=== PATIENT | male | born 1965 | race American Indian/Alaskan Native ===

== ENCOUNTER 2022-05-30 17:08 | Emergency (ER) | payer SELFPAY ==
[2022-05-30] MEDS ORDERED: SODIUM CHLORIDE 0.9% 1000 ML 1,000 ML IV ONE (17:35)
[2022-05-30 18:46] LABS: Basophils # (Auto) 0.1 K/mm3 (0.0-0.1); Basophils % (Auto) 1.8 % (0.0-1.8); Eosinophils % (Auto) 0.6 % (0.0-4.3); Hematocrit 39.6 % (35.5-45.6); Hemoglobin 12.4 gm/dl (11.8-15.2); Lymphocytes # (Auto) 0.7 K/mm3 (1.2-5.4); Lymphocytes % (Auto) 8.8 % (13.4-35.0); Mean Corpuscular HGB Conc 31 % (32-34); Mean Corpuscular Volume 75 fl (84-94); Monocytes # (Auto) 0.3 K/mm3 (0.0-0.8); Monocytes % (Auto) 3.4 % (0.0-7.3); Platelet Count 173 K/mm3 (140-440); Red Blood Count 5.26 M/mm3 (3.65-5.03); Red Cell Distribution Width 16.7 % (13.2-15.2)
[2022-05-30 19:10] LABS: Alanine Aminotransferase 15 units/L (7-56); Albumin 4.4 g/dL (3.9-5); BUN/Creatinine Ratio 9; Blood Urea Nitrogen 18 mg/dL (9-20); Calcium 9.4 mg/dL (8.4-10.2); Hemolysis Index 3
--- NOTE | 2022-05-30 19:19 | Emergency Department Report ---
ED Syncope HPI - General Chief Complaint: Syncope Stated Complaint: SYNCOPE/HEAT CRAMPS Time Seen by Provider: 05/30/22 17:34 Source: patient Exam Limitations: no limitations - History of Present Illness Initial Comments: Patient is a 57-year-old -Indian male presenting to ED with complaint of syncopal episode. States he was working in the yard earlier today and went into the bushes to urinate. States as he was coming out and he began to feel lightheaded and passed out. He denies any shortness of breath or chest pain preceding the event. States he thinks he may have been dehydrated. No prior history of syncope. - Related Data Allergies/Adverse Reactions: Allergies No Known Allergies Allergy (Unverified 05/30/22 17:19) ED Review of Systems ROS: Stated complaint: SYNCOPE/HEAT CRAMPS Other details as noted in HPI Constitutional: denies: chills, fever Respiratory: denies: cough, shortness of breath, wheezing Cardiovascular: denies: chest pain, palpitations Endocrine: no symptoms reported Gastrointestinal: denies: abdominal pain, nausea, diarrhea Musculoskeletal: denies: back pain, joint swelling, arthralgia Skin: as per HPI Neurological: denies: headache, weakness, paresthesias Psychiatric: denies: anxiety, depression ED Past Medical Hx - Past Medical History Previous Medical History?: No - Surgical History Past Surgical History?: Yes Additional Surgical History: abdominal 2002 - Social History Smoking Status: Current Every Day Smoker Substance Use Type: Alcohol ED Physical Exam - General Limitations: No Limitations General appearance: alert, in no apparent distress - Head Head exam: Present: atraumatic, normocephalic - Eye Eye exam: Present: normal appearance - Respiratory Respiratory exam: Present: normal lung sounds bilaterally. Absent: respiratory distress - Cardiovascular Cardiovascular Exam: Present: regular rate, normal rhythm, normal heart sounds - GI/Abdominal GI/Abdominal exam: Present: soft. Absent: distended, tenderness - Rectal Rectal exam: Present: deferred - Neurological Exam Neurological exam: Present: alert, oriented X3 - Psychiatric Psychiatric exam: Present: normal affect, normal mood - Skin Skin exam: Present: warm, dry, intact, normal color ED Course Vital Signs 05/30/22 05/30/22 05/30/22 17:08 17:29 18:05 Temperature 95.9 F L 97.5 F L 97.5 F L Pulse Rate 61 68 62 Respiratory 18 20 20 Rate Blood Pressure 140/81 Blood Pressure 133/79 140/81 146/78 [Left] O2 Sat by Pulse 97 99 99 Oximetry ED Medical Decision Making - Lab Data Result diagrams: 05/30/22 17:56 05/30/22 17:56 - EKG Data -: EKG Interpreted by Me (Diffuse T wave inversions, anterior ST elevation) EKG shows normal: sinus rhythm, axis - Medical Decision Making Patient presenting to ED status post syncopal event while working in his yard. He denies any chest pain. Work-up was performed including EKG, laboratory evaluation and orthostatics. EKG reveals diffuse T wave depression with anterior ST elevation. There is no prior EKG for comparison. Patient maintains that he has experienced no chest pain or shortness of breath. States he simply feels dehydrated. Laboratory evaluation performed and is essentially unremarkable except for creatinine of 2. Orthostatics are negative. Patient was given 1 L saline bolus. On reassessment states he feels better and is ready to go home. I do not feel patient's syncope is cardiac related. Will discharg e home. Critical care attestation.: If time is entered above; I have spent that time in minutes in the direct care of this critically ill patient, excluding procedure time. ED Disposition Clinical Impression: Syncope Disposition: 01 HOME / SELF CARE / HOMELESS Is pt being admited?: No Condition: Stable Instructions: Syncope (ED), Syncope, [id number] Additional Instructions: Please follow-up with your primary doctor at your earliest convenience. You may return if your symptoms worsen. Time of Disposition: 22:43
[2022-05-30 23:15] VITALS: BP 124/86
--- NOTE | 2022-06-01 10:15 | Electrocardiograph Report ---
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
== END 2022-05-30 23:17 | disposition home or self-care (01) ==
LOC: ED 17:08
DX: R55 Syncope and collapse (principal); F17.200 Nicotine dependence, unspecified, uncomplicated; F10.20 Alcohol dependence, uncomplicated
CPT/HCPCS: 36415; 80053; 84484; 85025; 93005; 96360; 99284; J7030